=== PATIENT | male | born 1970 | race African-American/Black ===

== ENCOUNTER 2022-06-07 04:47 | Emergency (ER) | payer MEDICAID ==
[~2022-06-07] VITALS: Ht 175.3 cm; Wt 87.0 kg
[2022-06-07 05:01] VITALS: BP 146/82
== END 2022-06-07 13:17 | disposition left against medical advice (07) ==
LOC: ER 04:55
DX: M54.50 Low back pain, unspecified (principal); Z53.21 Procedure and treatment not carried out due to patient leaving prior to being seen by health care provider
CPT/HCPCS: 99281